=== PATIENT | female | born 1955 | race Caucasian/White ===

== ENCOUNTER 2023-05-18 05:28 | Inpatient (IN) | payer MEDICARE, OTHER ==
[~2023-05-18] VITALS: Ht 172.7 cm; Wt 101.0 kg
[2023-05-18] VITALS (45 sets, daily range): BP systolic 82–170; BP diastolic 34–95
[~2023-05-18 05:28] MED LIST: AMBIEN PO; CLARITIN-D 5 MG1 T12 PO; K-DUR 1010 MEQ PO; KLONOPIN0.5 MG PO; KLONOPIN1 M1 PO; KLOR-CON 1010 ME1 PO; LASIX40 MG PO; RANITIDINE HCL300 M2 PO; Synthroid,Lev100 MCG PO; TENORMIN25 M1 PO; TOPAMAX50 MG PO; TRAZADONE HYDR100 MG PO; VITAMIN B IJ
[2023-05-18] MEDS ORDERED: Midazolam Hydrochloride 5 MG/5 ML VIAL IV ONE (06:00)
[2023-05-18] MEDS ORDERED: Ceftriaxone Sodium 1 GM/10 ML SYR IV ONE (06:05)
[2023-05-18] MEDS ORDERED: methylPREDNISolone sod succ 125 MG VIAL IV ONE (06:05)
[2023-05-18] MEDS ORDERED: AZITHROMYCIN 250 ML IV ONE (06:05)
[2023-05-18 06:12] LABS: BASO % 0.2 % (0.0-1.0); EOS # 0.1 10*3/uL (0.0-0.4); EOS % 0.7 % (1.0-4.0); LYMPH # 2.5 10*3/uL (1.3-4.4); LYMPH % 24.3 % (27.0-41.0); MEAN CELL VOLUME 94.2 fl (81.0-99.0); MEAN CORPUSCULAR HGB 27.5 pg (27.0-31.0); MEAN CORPUSCULAR HGB CONC 29.2 g/dl (33.0-37.0); MEAN PLATELET VOLUME 9.5 fl (9.6-12.3); MONO # 0.4 10*3/uL (0.1-1.0); MONO % 3.7 % (3.0-9.0); NEUT # 7.2 10*3/uL (2.3-7.9); NEUT % 70.3 % (47.0-73.0); PLATELET COUNT AUTOMATED 397 10*3/uL (130-400); RED BLOOD COUNT 3.82 10*6/uL (4.10-5.10); RED CELL DISTRI WIDTH 16.6 % (0-14.5); WHITE BLOOD COUNT 10.3 10*3/uL (4.8-10.8)
[2023-05-18] MEDS ORDERED: ROCURONIUM BROMIDE 50 MG/5 ML SYRINGE IV ONE (06:20)
[2023-05-18] MEDS ORDERED: ETOMIDATE 20 MG/10 ML VIAL IV ONE (06:20)
[2023-05-18] MEDS ORDERED: PROPOFOL 50 ML IV SCH (06:20)
[2023-05-18] MEDS ORDERED: PROPOFOL 100 ML IV ONE (06:32)
[2023-05-18] MEDS ORDERED: FUROSEMIDE 40 MG/4 ML VIAL IV ONE (06:35)
[2023-05-18 06:39] LABS: ALKALINE PHOSPHATASE 66 U/L (46-116); BUN 9 mg/dl (9-23); CHLORIDE 110 mmol/L (98-107); LIPASE 132 U/L (12-53); POTASSIUM 4.1 mmol/L (3.4-5.1); SGPT/ALT 8 U/L (5-49); TOTAL PROTEIN 6.2 gm/dL (6.0-8.0)
[2023-05-18] MEDS ORDERED: NOREPINEPHRINE BITARTRATE/D5W 250 ML IV ONE (06:42)
[2023-05-18 07:08] LABS: ACT PARTIAL THROMBO TIME 33.8 SECONDS (20.0-32.1)
[2023-05-18] MEDS ORDERED: ACETAMINOPHEN 325 MG SUPP R ONE (08:10)
[2023-05-18] MEDS ORDERED: BISACODYL 5 MG TAB PO PRN (08:20)
[2023-05-18] MEDS ORDERED: Magnesium Hydroxide 30 ML UDC PO PRN (08:20)
[2023-05-18] MEDS ORDERED: HEPARIN SODIUM 250 ML IV SCH (08:20)
[2023-05-18] MEDS ORDERED: MORPHINE Sulfate 2 MG/ML SYR IV PRN (08:20)
[2023-05-18] MEDS ORDERED: ACETAMINOPHEN 650 MG SUPP R PRN (08:25)
[2023-05-18] MEDS ORDERED: Midazolam Hydrochloride 5 MG/5 ML VIAL IV PRN (08:30)
[2023-05-18] MEDS ORDERED: Ceftriaxone Sodium 1 GM in SYRINGE INFUSION 10 ML IV ONE (08:35)
[2023-05-18] MEDS ORDERED: DEXMEDETOMIDINE IN 0.9 % NACL 100 ML IV SCH (08:35)
[2023-05-18] MEDS ORDERED: ASPIRIN 300 MG SUPP R ONE (08:40)
[2023-05-18] MEDS ORDERED: Dexamethasone Sodium Phospha 4 MG/ML VIAL IV SCH (08:40)
[2023-05-18] MEDS ORDERED: NOREPINEPHRINE BITARTRATE/D5W 250 ML IV SCH (08:55)
[2023-05-18] MEDS ORDERED: REMDESIVIR 200 MG in SODIUM CHLORIDE 0.9% 210 ML IV ONE (09:00)
[2023-05-18] MEDS ORDERED: SODIUM CHLORIDE 0.9% 1,000 ML IV SCH (09:15)
[2023-05-18 09:51] LABS: ABG BASE EXCESS -4.6 mmol/L (-2.0-2.0); ARTERIAL BLOOD GAS PH 7.285 (7.35-7.45)
[2023-05-18] MEDS ORDERED: SODIUM CHLORIDE 0.9% 500 ML IV ONE (09:55)
[2023-05-18] MEDS ORDERED: Pantoprazole Sodium 40 MG VIAL IV SCH (10:00)
[2023-05-18] MEDS ORDERED: Chlorhexidine Gluconate 15 ML MOUTHWASH T SCH (10:00)
[2023-05-18] MEDS ORDERED: METOPROLOL SUCCINATE XR 25 MG TAB PO SCH (10:00)
[2023-05-18] MEDS ORDERED: VASOPRESSIN 100 ML IV SCH (10:40)
[2023-05-18 15:36] LABS: ABG BASE EXCESS -4.6 mmol/L (-2.0-2.0); ARTERIAL BLOOD GAS PH 7.412 (7.35-7.45)
[2023-05-18] MEDS ORDERED: TYLENOL325 M1 PO (16:00)
[2023-05-18] MEDS ORDERED: AMIODARONE HYD200 MG PO (16:01)
[2023-05-18] MEDS ORDERED: ELIQUIS5 M1 PO (16:02)
[2023-05-18] MEDS ORDERED: NEURONTIN300 MG PO (16:03)
[2023-05-18] MEDS ORDERED: VISTARIL25 M2 PO (16:05)
[2023-05-18] MEDS ORDERED: LOPRESSOR50 M1 PO (16:06)
[2023-05-18] MEDS ORDERED: ZYPREXA20 M1 PO (16:07)
[2023-05-18] MEDS ORDERED: ONDANSETRON4 MG SL (16:08)
[2023-05-18] MEDS ORDERED: PROTONIX40 MG PO (16:09)
[2023-05-18 19:59] LABS: BILIRUBIN Negative (Negative); BLOOD Trace-Lysed (Negative); CLARITY Cloudy (Clear); COLOR Yellow (Yellow); GLUCOSE Negative (Negative); KETONE Negative (Negative); LEUKO ESTERASE Trace (Negative); NITRITE Negative (Negative); SPECIFIC GRAVITY 1.015 (1.001-1.030); UROBILINOGEN 0.2 E.U./dl (0.0-1.0)
[2023-05-18 20:19] LABS: BACTERIA 1+; FINE GRANULAR CAST 0-2
[2023-05-18] MEDS ORDERED: GABAPENTIN 300 MG CAP PO SCH (22:00)
[2023-05-18] MEDS ORDERED: Metoprolol Tartrate 50 MG TAB PO SCH (22:00)
[2023-05-18] MEDS ORDERED: OLANZAPINE 10 MG TAB PO SCH (22:00)
[2023-05-19] VITALS (96 sets, daily range): BP systolic 84–133; BP diastolic 43–74
[2023-05-19] MEDS ORDERED: Levothyroxine Sodium 100 MCG TAB PO SCH (06:00)
[2023-05-19] MEDS ORDERED: AZITHROMYCIN 250 ML IV SCH (06:00)
[2023-05-19 06:20] LABS: ALKALINE PHOSPHATASE 46 U/L (46-116); BUN 18 mg/dl (9-23); CHLORIDE 109 mmol/L (98-107); CHOLESTEROL 113 mg/dL (<200); FREE T4 1.45 ng/dl (0.89-1.76); LDL CHOLESTEROL 55 mg/dL (9-159); LIPASE 37 U/L (12-53); POTASSIUM 4.2 mmol/L (3.4-5.1); TOTAL PROTEIN 5.5 gm/dL (6.0-8.0); TRIGLYCERIDES 160 mg/dl (<150)
[2023-05-19 06:22] LABS: SGPT/ALT < 7 U/L (5-49)
[2023-05-19 06:59] LABS: LYMPH # 1.4 10*3/uL (1.3-4.4); LYMPH % 23.6 % (27.0-41.0); MEAN CORPUSCULAR HGB 29.9 pg (27.0-31.0); MEAN CORPUSCULAR HGB CONC 32.9 g/dl (33.0-37.0); MEAN PLATELET VOLUME 10.7 fl (9.6-12.3); MONO # 0.3 10*3/uL (0.1-1.0); MONO % 5.2 % (3.0-9.0); NEUT # 4.2 10*3/uL (2.3-7.9); NEUT % 70.2 % (47.0-73.0); PLATELET COUNT AUTOMATED 329 10*3/uL (130-400); RED BLOOD COUNT 3.08 10*6/uL (4.10-5.10); RED CELL DISTRI WIDTH 16.3 % (0-14.5)
[2023-05-19 07:01] LABS: MEAN CELL VOLUME 90.9 fl (81.0-99.0)
[2023-05-19 07:18] LABS: VITAMIN D, 25-HYDROXY 29.8 ng/mL (30-100)
[2023-05-19] MEDS ORDERED: MAGNESIUM SULFATE 50 ML IV ONE (07:55)
[2023-05-19] MEDS ORDERED: Ceftriaxone Sodium 2 GM in SYRINGE INFUSION 20 ML IV SCH (08:00)
[2023-05-19 08:37] LABS: ABG BASE EXCESS -3.5 mmol/L (-2.0-2.0); ARTERIAL BLOOD GAS PH 7.473 (7.35-7.45)
[2023-05-19] MEDS ORDERED: REMDESIVIR 100 MG in SODIUM CHLORIDE 0.9% 230 ML IV SCH (09:00)
[2023-05-19] MEDS ORDERED: FUROSEMIDE 40 MG/4 ML VIAL IV SCH ×2 (10:00→18:00)
[2023-05-19] MEDS ORDERED: Vitamin D 400 IU TAB (10 MCG) PO SCH (10:00)
[2023-05-19] MEDS ORDERED: ATORVASTATIN CALCIUM 40 MG TABLET PO SCH (10:00)
[2023-05-19] MEDS ORDERED: FOLIC ACID 0.4 MG TAB PO SCH (10:00)
[2023-05-19] MEDS ORDERED: Amiodarone Hydrochloride 200 MG TAB PO SCH (10:00)
[2023-05-19] MEDS ORDERED: NYSTATIN 15 GM BOT T SCH (10:40)
[2023-05-19 12:28] LABS: ABG BASE EXCESS -2.8 mmol/L (-2.0-2.0); ARTERIAL BLOOD GAS PH 7.456 (7.35-7.45)
[2023-05-19] MEDS ORDERED: ACETAMINOPHEN 325 MG/10.15 ML UDC OGT PRN (19:45)
[2023-05-20] VITALS (51 sets, daily range): BP systolic 95–123; BP diastolic 40–78
[2023-05-20 06:03] LABS: HEMATOCRIT 26.3 % (37.0-47.0); LYMPH % 13.1 % (27.0-41.0); MEAN CELL VOLUME 88.6 fl (81.0-99.0); MEAN CORPUSCULAR HGB 28.3 pg (27.0-31.0); MEAN CORPUSCULAR HGB CONC 31.9 g/dl (33.0-37.0); MONO # 0.6 10*3/uL (0.1-1.0); MONO % 7.9 % (3.0-9.0); NEUT # 5.7 10*3/uL (2.3-7.9); NEUT % 77.8 % (47.0-73.0); PLATELET COUNT AUTOMATED 282 10*3/uL (130-400); RED BLOOD COUNT 2.97 10*6/uL (4.10-5.10); RED CELL DISTRI WIDTH 15.9 % (0-14.5); WHITE BLOOD COUNT 7.3 10*3/uL (4.8-10.8)
[2023-05-20 06:13] LABS: ALKALINE PHOSPHATASE 44 U/L (46-116); BUN 26 mg/dl (9-23); CHLORIDE 106 mmol/L (98-107); POTASSIUM 3.8 mmol/L (3.4-5.1); SGPT/ALT 9 U/L (5-49); TOTAL PROTEIN 5.5 gm/dL (6.0-8.0)
[2023-05-20] MEDS ORDERED: POTASSIUM CHLORIDE 100 ML IV ONE (08:00)
[2023-05-20 10:23] LABS: ARTERIAL BLOOD GAS PH 7.496 (7.35-7.45)
[2023-05-20 13:25] LABS: ABG BASE EXCESS 1.4 mmol/L (-2.0-2.0); ARTERIAL BLOOD GAS PH 7.5 (7.35-7.45)
[2023-05-21] VITALS (13 sets, daily range): BP systolic 95–146; BP diastolic 41–71
[2023-05-21 06:15] LABS: BUN 24 mg/dl (9-23); CHLORIDE 105 mmol/L (98-107); POTASSIUM 3.4 mmol/L (3.4-5.1)
[2023-05-21 06:26] LABS: HEMATOCRIT 23.4 % (37.0-47.0); LYMPH # 1.1 10*3/uL (1.3-4.4); LYMPH % 15.5 % (27.0-41.0); MEAN CORPUSCULAR HGB 27.4 pg (27.0-31.0); MEAN CORPUSCULAR HGB CONC 30.8 g/dl (33.0-37.0); MEAN PLATELET VOLUME 11.6 fl (9.6-12.3); MONO # 0.4 10*3/uL (0.1-1.0); MONO % 5.2 % (3.0-9.0); NEUT # 5.7 10*3/uL (2.3-7.9); NEUT % 77.5 % (47.0-73.0); PLATELET COUNT AUTOMATED 229 10*3/uL (130-400); RED BLOOD COUNT 2.63 10*6/uL (4.10-5.10); RED CELL DISTRI WIDTH 15.9 % (0-14.5); WHITE BLOOD COUNT 7.3 10*3/uL (4.8-10.8)
[2023-05-21] MEDS ORDERED: POTASSIUM CHLORIDE 20 MEQ TAB PO ONE (07:15)
[2023-05-21] MEDS ORDERED: MAGNESIUM SULFATE 100 ML IV ONE (07:15)
[2023-05-21 08:03] LABS: ARTERIAL BLOOD GAS PH 7.477 (7.35-7.45)
[2023-05-21] MEDS ORDERED: SODIUM CHLORIDE 0.9% 500 ML IV SCH (11:25)
[2023-05-21] MEDS ORDERED: CARVEDILOL 3.125 MG TAB PO SCH (13:45)
[2023-05-21] MEDS ORDERED: Losartan Potassium 25 MG TAB PO SCH (13:50)
[2023-05-22] VITALS: BP 119/75
[2023-05-22 04:00] VITALS: BP 137/82
[2023-05-22 06:15] LABS: BUN 22 mg/dl (9-23); CHLORIDE 104 mmol/L (98-107); POTASSIUM 3.2 mmol/L (3.4-5.1)
[2023-05-22 06:22] LABS: MEAN CELL VOLUME 88.3 fl (81.0-99.0); MEAN CORPUSCULAR HGB 28.8 pg (27.0-31.0); MEAN CORPUSCULAR HGB CONC 32.6 g/dl (33.0-37.0); MEAN PLATELET VOLUME 11.2 fl (9.6-12.3); NUCLEATED RED BLOOD CELL 0.1 10*3/uL (0.0-0.0); NUCLEATED RED BLOOD CELL 0.4 % (0.0-0.0); RED BLOOD COUNT 3.85 10*6/uL (4.10-5.10); RED CELL DISTRI WIDTH 15.5 % (0-14.5); WHITE BLOOD COUNT 17.9 10*3/uL (4.8-10.8)
[2023-05-22 06:26] LABS: MANUAL DIFF REFLEX YES; PLATELET COUNT AUTOMATED 359 10*3/uL (130-400)
[2023-05-22 07:58] LABS: TOTAL CELLS COUNTED 100 #CELLS
[2023-05-22 07:59] LABS: POLYCHROMASIA SLIGHT
[2023-05-22 08:00] VITALS: BP 147/82
[2023-05-22 08:00] LABS: OVALOCYTES FEW; PLATELET SUFFICIENCY NORMAL (NORMAL)
[2023-05-22] MEDS ORDERED: POTASSIUM CHLORIDE 20 MEQ TAB PO ONE (08:40)
[2023-05-22] MEDS ORDERED: IOHEXOL 9 MG/ML (IODINE) ORAL SOLUTION PO ONE (10:25)
[2023-05-22 12:00] VITALS: BP 148/92
[2023-05-22] MEDS ORDERED: ALPRAZolam 0.25 MG TAB PO PRN (13:35)
[2023-05-22] MEDS ORDERED: SPIRONOLACTONE 25 MG TAB PO SCH (15:50)
[2023-05-22 16:00] VITALS: BP 152/91
[2023-05-22 17:30] LABS: HEMATOCRIT 37.3 % (37.0-47.0); MEAN CELL VOLUME 88.4 fl (81.0-99.0); MEAN CORPUSCULAR HGB 28.2 pg (27.0-31.0); MEAN CORPUSCULAR HGB CONC 31.9 g/dl (33.0-37.0); MEAN PLATELET VOLUME 10.9 fl (9.6-12.3); NUCLEATED RED BLOOD CELL 0.1 10*3/uL (0.0-0.0); NUCLEATED RED BLOOD CELL 0.6 % (0.0-0.0); PLATELET COUNT AUTOMATED 346 10*3/uL (130-400); RED BLOOD COUNT 4.22 10*6/uL (4.10-5.10); RED CELL DISTRI WIDTH 15.8 % (0-14.5); WHITE BLOOD COUNT 20.7 10*3/uL (4.8-10.8)
[2023-05-22 17:32] LABS: MANUAL DIFF REFLEX YES
[2023-05-22 17:57] LABS: PLATELET SUFFICIENCY NORMAL (NORMAL); TOTAL CELLS COUNTED 100 #CELLS
[2023-05-22 20:00] VITALS: BP 114/95
[2023-05-22] MEDS ORDERED: CARVEDILOL 12.5 MG TAB PO SCH (22:00)
[2023-05-23] VITALS: BP 113/68
[2023-05-23 04:00] VITALS: BP 112/60
[2023-05-23 06:15] LABS: HEMATOCRIT 35.1 % (37.0-47.0); MEAN CELL VOLUME 88.4 fl (81.0-99.0); MEAN CORPUSCULAR HGB CONC 32.8 g/dl (33.0-37.0); MEAN PLATELET VOLUME 11.4 fl (9.6-12.3); NUCLEATED RED BLOOD CELL 0.1 10*3/uL (0.0-0.0); NUCLEATED RED BLOOD CELL 0.9 % (0.0-0.0); PLATELET COUNT AUTOMATED 324 10*3/uL (130-400); RED BLOOD COUNT 3.97 10*6/uL (4.10-5.10); RED CELL DISTRI WIDTH 16.4 % (0-14.5); WHITE BLOOD COUNT 14.5 10*3/uL (4.8-10.8)
[2023-05-23 06:17] LABS: MANUAL DIFF REFLEX YES
[2023-05-23 07:16] LABS: ATYPICAL LYMPHS 1 % (0-0); TOTAL CELLS COUNTED 100 #CELLS
[2023-05-23 07:17] LABS: OVALOCYTES FEW; POLYCHROMASIA SLIGHT
[2023-05-23 07:18] LABS: PLATELET SUFFICIENCY NORMAL (NORMAL)
[2023-05-23 07:25] LABS: BUN 20 mg/dl (9-23); CHLORIDE 101 mmol/L (98-107); POTASSIUM 3.7 mmol/L (3.4-5.1)
[2023-05-23 08:00] VITALS: BP 148/89
[2023-05-23] MEDS ORDERED: Losartan Potassium 25 MG TAB PO SCH (10:00)
[2023-05-23] MEDS ORDERED: Enoxaparin Sodium 40 MG/0.4 ML SYR SC SCH (10:00)
[2023-05-23 12:00] VITALS: BP 99/49
[2023-05-23 16:00] VITALS: BP 95/44
[2023-05-23 20:00] VITALS: BP 150/71
[2023-05-23] MEDS ORDERED: TEMAZEPAM 15 MG CAP PO PRN (22:00)
[2023-05-24] VITALS: BP 134/54
[2023-05-24 05:48] LABS: BUN 13 mg/dl (9-23); CHLORIDE 104 mmol/L (98-107); POTASSIUM 3.2 mmol/L (3.4-5.1)
[2023-05-24 07:25] LABS: HEMATOCRIT 33.4 % (37.0-47.0); MEAN CELL VOLUME 90.3 fl (81.0-99.0); MEAN CORPUSCULAR HGB 28.4 pg (27.0-31.0); MEAN CORPUSCULAR HGB CONC 31.4 g/dl (33.0-37.0); NUCLEATED RED BLOOD CELL 0.2 % (0.0-0.0); PLATELET COUNT AUTOMATED 250 10*3/uL (130-400); RED CELL DISTRI WIDTH 16.9 % (0-14.5); WHITE BLOOD COUNT 15.9 10*3/uL (4.8-10.8)
[2023-05-24] MEDS ORDERED: POTASSIUM CHLORIDE 20 MEQ TAB PO ONE (07:25)
[2023-05-24] MEDS ORDERED: MAGNESIUM SULFATE 50 ML IV ONE (07:25)
[2023-05-24 07:28] LABS: MANUAL DIFF REFLEX YES
[2023-05-24] MEDS ORDERED: CALCIUM GLUC IN NACL, ISO-OSM 100 ML IV ONE (07:35)
[2023-05-24 08:00] VITALS: BP 108/64
[2023-05-24 08:07] LABS: PLATELET SUFFICIENCY NORMAL (NORMAL); POLYCHROMASIA SLIGHT; TOTAL CELLS COUNTED 100 #CELLS; TOXIC GRANULATION SLIGHT; VACUOLATION OF NEUTROPHILS SLIGHT
[2023-05-24 12:00] VITALS: BP 110/66
[2023-05-24 16:00] VITALS: BP 149/60
[2023-05-24 16:14] LABS: BILIRUBIN Negative (Negative); BLOOD Negative (Negative); CLARITY Clear (Clear); COLOR Yellow (Yellow); GLUCOSE Negative (Negative); KETONE Negative (Negative); LEUKO ESTERASE Negative (Negative); NITRITE Negative (Negative); PH 6.5 (4.5-8.0); UROBILINOGEN 0.2 E.U./dl (0.0-1.0)
[2023-05-24 16:23] LABS: RBC 0-2 rbc/hpf (0-2)
[2023-05-24 20:00] VITALS: BP 103/44
[2023-05-24] MEDS ORDERED: ACETAMINOPHEN 325 MG TAB PO PRN (20:30)
[2023-05-25] VITALS (7 sets, daily range): BP systolic 94–165; BP diastolic 40–74
[2023-05-25] MEDS ORDERED: MORPHINE Sulfate 2 MG/ML SYR IV ONE (04:35)
[2023-05-25 06:25] LABS: HEMATOCRIT 33.9 % (37.0-47.0); MEAN CELL VOLUME 91.4 fl (81.0-99.0); MEAN CORPUSCULAR HGB 28.3 pg (27.0-31.0); MEAN PLATELET VOLUME 11.1 fl (9.6-12.3); PLATELET COUNT AUTOMATED 244 10*3/uL (130-400); RED BLOOD COUNT 3.71 10*6/uL (4.10-5.10); RED CELL DISTRI WIDTH 17.1 % (0-14.5); WHITE BLOOD COUNT 21.6 10*3/uL (4.8-10.8)
[2023-05-25 06:45] LABS: MANUAL DIFF REFLEX YES
[2023-05-25 06:57] LABS: BUN 20 mg/dl (9-23); CHLORIDE 102 mmol/L (98-107); POTASSIUM 3.2 mmol/L (3.4-5.1)
[2023-05-25] MEDS ORDERED: POTASSIUM CHLORIDE 20 MEQ TAB PO ONE (07:10)
[2023-05-25 07:50] LABS: TOTAL CELLS COUNTED 100 #CELLS
[2023-05-25 07:52] LABS: MICROCYTOSIS SLIGHT; PLATELET SUFFICIENCY NORMAL (NORMAL)
[2023-05-25] MEDS ORDERED: LASIX20 MG PO (09:12)
[2023-05-25] MEDS ORDERED: LOSARTAN POTASS25 M1 PO (09:12)
[2023-05-25] MEDS ORDERED: NYAMYC15 GM T (09:12)
[2023-05-25] MEDS ORDERED: CARVEDILOL12.5 MG PO (09:12)
[2023-05-25] MEDS ORDERED: PHARMASSURE FO0.4 MG PO (09:12)
[2023-05-25] MEDS ORDERED: ALDACTONE25 MG PO (09:12)
[2023-05-25] MEDS ORDERED: K-TAB20 MEQ PO (09:12)
[2023-05-25] MEDS ORDERED: VITAMIN D310 MC1 PO (09:12)
[2023-05-25] MEDS ORDERED: ATORVASTATIN CA40 M1 PO (09:12)
[2023-05-25] MEDS ORDERED: Ketorolac Tromethamine 30 MG/ML VIAL IV ONE (12:50)
[2023-05-25] MEDS ORDERED: METAMUCIL0.4 G1 PO (15:40)
[2023-05-25] MEDS ORDERED: LORazepam 0.5 MG TAB PO ONE (19:25)
[2023-05-26] VITALS: BP 95/41
[2023-05-26 00:09] VITALS: BP 95/21
[2023-05-26 00:55] VITALS: BP 108/55
[2023-05-26 05:56] LABS: BUN 21 mg/dl (9-23); CHLORIDE 104 mmol/L (98-107); POTASSIUM 4.1 mmol/L (3.4-5.1)
[2023-05-26 06:12] LABS: HEMATOCRIT 34.5 % (37.0-47.0); MEAN CELL VOLUME 92.7 fl (81.0-99.0); MEAN CORPUSCULAR HGB 28.2 pg (27.0-31.0); MEAN CORPUSCULAR HGB CONC 30.4 g/dl (33.0-37.0); MEAN PLATELET VOLUME 11.6 fl (9.6-12.3); NUCLEATED RED BLOOD CELL 0.5 % (0.0-0.0); PLATELET COUNT AUTOMATED 228 10*3/uL (130-400); RED BLOOD COUNT 3.72 10*6/uL (4.10-5.10); RED CELL DISTRI WIDTH 17.3 % (0-14.5); WHITE BLOOD COUNT 8.3 10*3/uL (4.8-10.8)
[2023-05-26 06:13] LABS: MANUAL DIFF REFLEX YES
[2023-05-26 07:18] LABS: BURR CELLS FEW; OVALOCYTES FEW; PLATELET SUFFICIENCY NORMAL (NORMAL); POLYCHROMASIA SLIGHT; TOTAL CELLS COUNTED 100 #CELLS; TOXIC GRANULATION SLIGHT; VACUOLATION OF NEUTROPHILS SLIGHT
[2023-05-26 08:00] VITALS: BP 140/64
[2023-05-26] MEDS ORDERED: FUROSEMIDE 20 MG TAB PO SCH (10:00)
[2023-05-26 12:00] VITALS: BP 1210/56
== END 2023-05-26 13:40 | DRG 871 ==
LOC: ED 05:28 → ICCU 07:52 → EDHOLD 07:52 → ICCU 12:51 → 4E 05-23 15:09
PROVIDERS: Family Medicine; Internal Medicine; Internal Medicine Critical Care Medicine; Student in an Organized Health Care Education/Training Program; Surgery; ADMIT Internal Medicine; ATTEND Internal Medicine
PROC: 5A1945Z Respiratory Ventilation, 24-96 Consecutive Hours (ICD-10-PCS; principal; 2023-05-18)
PROC: 0BH18EZ Insertion of Endotracheal Airway into Trachea, Via Natural or Artificial Opening Endoscopic (ICD-10-PCS; 2023-05-18)
PROC: 02HV33Z Insertion of Infusion Device into Superior Vena Cava, Percutaneous Approach (ICD-10-PCS; 2023-05-18)
PROC: B548ZZA Ultrasonography of Superior Vena Cava, Guidance (ICD-10-PCS; 2023-05-18)
PROC: XW033E5 Introduction of Remdesivir Anti-infective into Peripheral Vein, Percutaneous Approach, New Technology Group 5 (ICD-10-PCS; 2023-05-19)
PROC: 5A09357 Assistance with Respiratory Ventilation, Less than 24 Consecutive Hours, Continuous Positive Airway Pressure (ICD-10-PCS; 2023-05-20)
PROC: 30233N1 Transfusion of Nonautologous Red Blood Cells into Peripheral Vein, Percutaneous Approach (ICD-10-PCS; 2023-05-21)
DX: A41.9 Sepsis, unspecified organism (principal); E43 Unspecified severe protein-calorie malnutrition; I21.4 Non-ST elevation (NSTEMI) myocardial infarction; U07.1 COVID-19; J69.0 Pneumonitis due to inhalation of food and vomit; R65.21 Severe sepsis with septic shock; I50.23 Acute on chronic systolic (congestive) heart failure; J96.21 Acute and chronic respiratory failure with hypoxia; J96.22 Acute and chronic respiratory failure with hypercapnia; I42.9 Cardiomyopathy, unspecified; E87.20 Acidosis, unspecified; R65.20 Severe sepsis without septic shock; I44.4 Left anterior fascicular block; D64.9 Anemia, unspecified; F17.209 Nicotine dependence, unspecified, with unspecified nicotine-induced disorders; E87.8 Other disorders of electrolyte and fluid balance, not elsewhere classified; Z71.6 Tobacco abuse counseling; K21.9 Gastro-esophageal reflux disease without esophagitis; I11.0 Hypertensive heart disease with heart failure; E53.8 Deficiency of other specified B group vitamins; F41.1 Generalized anxiety disorder; E03.9 Hypothyroidism, unspecified; F32.9 Major depressive disorder, single episode, unspecified; K58.9 Irritable bowel syndrome, unspecified; E78.5 Hyperlipidemia, unspecified; E55.9 Vitamin D deficiency, unspecified; E11.65 Type 2 diabetes mellitus with hyperglycemia; E11.42 Type 2 diabetes mellitus with diabetic polyneuropathy; I27.20 Pulmonary hypertension, unspecified; I08.1 Rheumatic disorders of both mitral and tricuspid valves; Z93.3 Colostomy status; I48.91 Unspecified atrial fibrillation; Z90.710 Acquired absence of both cervix and uterus; Z82.49 Family history of ischemic heart disease and other diseases of the circulatory system; Z83.3 Family history of diabetes mellitus; Z88.5 Allergy status to narcotic agent; Z88.8 Allergy status to other drugs, medicaments and biological substances; Z79.899 Other long term (current) drug therapy; Z79.01 Long term (current) use of anticoagulants; Z68.33 Body mass index [BMI] 33.0-33.9, adult

== ENCOUNTER → 2023-07-16 | Outpatient (CLI) | payer MEDICARE, OTHER ==
[~2023-07-16] MED LIST changes: +ALDACTONE25 MG PO; +AMIODARONE HYD200 MG PO; +ATORVASTATIN CA40 M1 PO; +CARVEDILOL12.5 MG PO; +ELIQUIS5 M1 PO; +K-TAB20 MEQ PO; +LASIX20 MG PO; +LOPRESSOR50 M1 PO; +LOSARTAN POTASS25 M1 PO; +METAMUCIL0.4 G1 PO; +NEURONTIN300 MG PO; +NYAMYC15 GM T; +ONDANSETRON4 MG SL; +PHARMASSURE FO0.4 MG PO; +PROTONIX40 MG PO; +TYLENOL325 M1 PO; +VISTARIL25 M2 PO; +VITAMIN D310 MC1 PO; +ZYPREXA20 M1 PO
== END | disposition home or self-care (01) ==
LOC: ORTHO 01:34
PROVIDERS: ATTEND Orthopaedic Surgery
DX: M25.562 Pain in left knee (principal)

== ENCOUNTER 2024-01-31 20:12 | Emergency (ER) | payer MEDICARE, OTHER ==
[~2024-01-31] VITALS: Ht 165.1 cm; Wt 90.7 kg
[2024-01-31] MEDS ORDERED: SODIUM CHLORIDE 0.9% 1,000 ML IV ONE ×2 (20:25→22:10)
[2024-01-31] MEDS ORDERED: Ondansetron Hydrochloride 4 MG/2 ML VIAL IV ONE (20:25)
[2024-01-31 21:01] LABS: BASO # 0.1 10*3/uL (0.0-0.1); BASO % 0.6 % (0.0-1.0); EOS # 0.2 10*3/uL (0.0-0.4); EOS % 1.2 % (1.0-4.0); HEMATOCRIT 42.4 % (37.0-47.0); MEAN CELL VOLUME 84.8 fl (81.0-99.0); MEAN CORPUSCULAR HGB 25.2 pg (27.0-31.0); MEAN CORPUSCULAR HGB CONC 29.7 g/dl (33.0-37.0); MEAN PLATELET VOLUME 10.5 fl (9.6-12.3); MONO # 1.4 10*3/uL (0.1-1.0); MONO % 7.6 % (3.0-9.0); NEUT % 78.5 % (47.0-73.0); PLATELET COUNT AUTOMATED 437 10*3/uL (130-400); RED CELL DISTRI WIDTH 19.9 % (0-14.5); WHITE BLOOD COUNT 17.8 10*3/uL (4.8-10.8)
[2024-01-31 21:23] LABS: POTASSIUM 4.6 mmol/L (3.4-5.1); TOTAL PROTEIN 7.5 gm/dL (6.0-8.0)
[2024-01-31] MEDS ORDERED: MAGNESIUM SULFATE 50 ML IV ONE (21:40)
[2024-01-31] MEDS ORDERED: LORazepam 2 MG/ML VIAL IV ONE (23:20)
[2024-01-31 23:33] LABS: BILIRUBIN Negative (Negative); BLOOD Negative (Negative); CLARITY Clear (Clear); COLOR Yellow (Yellow); GLUCOSE Negative (Negative); KETONE Trace (Negative); LEUKO ESTERASE Trace (Negative); NITRITE Negative (Negative); SPECIFIC GRAVITY 1.025 (1.001-1.030); UROBILINOGEN 0.2 E.U./dl (0.0-1.0)
[2024-01-31 23:40] LABS: URINE AMPHETAMINES Negative (1000ng/ml); URINE BARBITURATES Negative (200ng/ml); URINE BENZODIAZEPINES Positive (200ng/ml); URINE CANNABINOIDS (THC) Negative (50ng/ml); URINE COCAINE Negative (300ng/ml); URINE METHADONE Negative (300ng/ml); URINE OPIATES Positive (300ng/ml); URINE PHENCYCLIDINE Negative (25ng/ml)
[2024-02-01 00:21] LABS: BACTERIA 1+; EPITHELIAL CELLS 16-20
[2024-02-01 02:17] LABS: VENOUS BLOOD GAS O2 SAT 94.3 % (60.0-85.0)
[2024-02-01 02:41] LABS: BUN 22 mg/dl (9-23); CHLORIDE 101 mmol/L (98-107); POTASSIUM 4.1 mmol/L (3.4-5.1)
[2024-02-01] MEDS ORDERED: ACETAMINOPHEN 500 MG TAB PO ONE (09:35)
[2024-02-01] MEDS ORDERED: LORazepam 1 MG TAB PO ONE (11:15)
[2024-02-01] MEDS ORDERED: ASPIRIN ADULT L81 M2 PO (17:55)
[2024-02-01] MEDS ORDERED: ELIQUIS5 M1 PO (17:58)
[2024-02-01] MEDS ORDERED: BUSPIRONE HCL7.5 MG PO (18:00)
[2024-02-01] MEDS ORDERED: CIPRO500 MG PO (18:03)
[2024-02-01] MEDS ORDERED: LEXAPRO10 MG PO (18:04)
[2024-02-01] MEDS ORDERED: FERROUS GLUCON324 MG PO (18:21)
[2024-02-01] MEDS ORDERED: HYDROCODONE-AC1 EAC1 PO (18:25)
[2024-02-01] MEDS ORDERED: FLUZONE HI180 MCG/08 IM (18:27)
[2024-02-01] MEDS ORDERED: TUBERSOL1 M1 IC (18:35)
[2024-02-01] MEDS ORDERED: MIRALAX17 GM PO (18:35)
[2024-02-02] MEDS ORDERED: LASIX20 MG PO (00:39)
== END 2024-02-01 15:05 ==
LOC: ED 20:12
PROVIDERS: Internal Medicine; Nurse Practitioner Family
DX: F43.23 Adjustment disorder with mixed anxiety and depressed mood (principal); T55.0X1A Toxic effect of soaps, accidental (unintentional), initial encounter; K52.1 Toxic gastroenteritis and colitis; R11.2 Nausea with vomiting, unspecified; E78.00 Pure hypercholesterolemia, unspecified; E87.6 Hypokalemia; K21.9 Gastro-esophageal reflux disease without esophagitis; E78.5 Hyperlipidemia, unspecified; E03.9 Hypothyroidism, unspecified; M19.90 Unspecified osteoarthritis, unspecified site; E11.65 Type 2 diabetes mellitus with hyperglycemia; F32.A Depression, unspecified; E11.40 Type 2 diabetes mellitus with diabetic neuropathy, unspecified; D63.1 Anemia in chronic kidney disease; E11.22 Type 2 diabetes mellitus with diabetic chronic kidney disease; N18.9 Chronic kidney disease, unspecified; I13.0 Hypertensive heart and chronic kidney disease with heart failure and stage 1 through stage 4 chronic kidney disease, or unspecified chronic kidney disease; I48.91 Unspecified atrial fibrillation; F17.200 Nicotine dependence, unspecified, uncomplicated; Z88.5 Allergy status to narcotic agent; Z88.8 Allergy status to other drugs, medicaments and biological substances; Z90.710 Acquired absence of both cervix and uterus; Z90.49 Acquired absence of other specified parts of digestive tract; Z79.899 Other long term (current) drug therapy; Y92.129 Unspecified place in nursing home as the place of occurrence of the external cause

== ENCOUNTER 2024-02-01 16:28 | Inpatient (IN) | payer MEDICARE, OTHER ==
[2024-02-01] MEDS ORDERED: ASPIRIN ADULT L81 M2 PO (17:55)
[2024-02-01] MEDS ORDERED: ELIQUIS5 M1 PO (17:58)
[2024-02-01] MEDS ORDERED: BUSPIRONE HCL7.5 MG PO (18:00)
[2024-02-01] MEDS ORDERED: CIPRO500 MG PO (18:03)
[2024-02-01] MEDS ORDERED: LEXAPRO10 MG PO (18:04)
[2024-02-01] MEDS ORDERED: FERROUS GLUCON324 MG PO (18:21)
[2024-02-01] MEDS ORDERED: HYDROCODONE-AC1 EAC1 PO (18:25)
[2024-02-01] MEDS ORDERED: FLUZONE HI180 MCG/08 IM (18:27)
[2024-02-01] MEDS ORDERED: MIRALAX17 GM PO (18:35)
[2024-02-01] MEDS ORDERED: TUBERSOL1 M1 IC (18:35)
[2024-02-01 20:00] VITALS: BP 121/53
[2024-02-01] MEDS ORDERED: ACETAMINOPHEN 325 MG TAB PO PRN (20:10)
[2024-02-01] MEDS ORDERED: Magnesium Hydroxide 30 ML UDC PO PRN (20:10)
[2024-02-01] MEDS ORDERED: Menthol/Zinc Oxide 4 GM THIN T PRN (20:15)
[2024-02-01] MEDS ORDERED: Ziprasidone Mesylate 20 MG VIAL IM PRN (20:20)
[2024-02-01] MEDS ORDERED: LORazepam 1 MG TAB PO PRN (20:20)
[2024-02-01] MEDS ORDERED: Water, Sterile 10 ML VIAL IM PRN (20:20)
[2024-02-01] MEDS ORDERED: LORazepam 2 MG/ML VIAL IM PRN (20:20)
[2024-02-01] MEDS ORDERED: APIXABAN 5 MG TAB PO SCH (21:00)
[2024-02-01] MEDS ORDERED: Ciprofloxacin Hydrochloride 500 MG TAB PO SCH (21:00)
[2024-02-01] MEDS ORDERED: FERROUS GLUCONATE 324 MG TAB PO SCH (21:00)
[2024-02-02] MEDS ORDERED: LASIX20 MG PO (00:39)
[2024-02-02 06:25] LABS: BASO # 0.1 10*3/uL (0.0-0.1); EOS # 0.1 10*3/uL (0.0-0.4); EOS % 1.6 % (1.0-4.0); HEMATOCRIT 34.6 % (37.0-47.0); LYMPH # 1.7 10*3/uL (1.3-4.4); LYMPH % 25.5 % (27.0-41.0); MEAN CELL VOLUME 82.4 fl (81.0-99.0); MEAN CORPUSCULAR HGB 25.5 pg (27.0-31.0); MEAN CORPUSCULAR HGB CONC 30.9 g/dl (33.0-37.0); MEAN PLATELET VOLUME 11.1 fl (9.6-12.3); MONO # 0.7 10*3/uL (0.1-1.0); MONO % 9.6 % (3.0-9.0); NEUT # 4.2 10*3/uL (2.3-7.9); NEUT % 61.9 % (47.0-73.0); PLATELET COUNT AUTOMATED 327 10*3/uL (130-400); RED CELL DISTRI WIDTH 19.4 % (0-14.5); WHITE BLOOD COUNT 6.8 10*3/uL (4.8-10.8)
[2024-02-02 06:36] LABS: ALKALINE PHOSPHATASE 89 U/L (46-116); BUN 15 mg/dl (9-23); CHLORIDE 106 mmol/L (98-107); CHOLESTEROL 119 mg/dL (<200); LDL CHOLESTEROL 64 mg/dL (9-159); POTASSIUM 3.9 mmol/L (3.4-5.1); SGPT/ALT 15 U/L (5-49); TRIGLYCERIDES 73 mg/dl (<150)
[2024-02-02 08:00] VITALS: BP 131/59
[2024-02-02 08:21] LABS: VITAMIN D, 25-HYDROXY 39.2 ng/mL (30-100)
[2024-02-02] MEDS ORDERED: FUROSEMIDE 20 MG TAB PO SCH (09:00)
[2024-02-02] MEDS ORDERED: ASPIRIN ENTERIC COATED 81 MG TAB PO SCH (09:00)
[2024-02-02] MEDS ORDERED: POTASSIUM CHLORIDE 20 MEQ TAB PO SCH (09:00)
[2024-02-02] MEDS ORDERED: Levothyroxine Sodium 100 MCG TAB PO SCH (10:00)
[2024-02-02] MEDS ORDERED: ATORVASTATIN CALCIUM 40 MG TABLET PO SCH (10:00)
[2024-02-02] MEDS ORDERED: Pantoprazole Sodium 40 MG TAB PO SCH (10:00)
[2024-02-02 20:00] VITALS: BP 116/50
[2024-02-02] MEDS ORDERED: Duloxetine Hydrochloride 30 MG CAP PO SCH (21:00)
[2024-02-02] MEDS ORDERED: Amoxicillin/Clavulanate Pota 875 MG TAB PO SCH (21:00)
[2024-02-02] MEDS ORDERED: Acetaminophen/Hydrocodone 5 MG/325 MG TABLET PO ONE (23:05)
[2024-02-03 08:00] VITALS: BP 115/47
[2024-02-03] MEDS ORDERED: CYANOCOBALAMIN 1,000 MCG/ML VIAL IM SCH ×2 (10:00→17:05)
[2024-02-03] MEDS ORDERED: Capsaicin 0.075% Cream 57 GM TUBE T SCH (13:00)
[2024-02-03] MEDS ORDERED: GABAPENTIN 100 MG CAP PO SCH (14:00)
[2024-02-03 20:00] VITALS: BP 124/50
[2024-02-03] MEDS ORDERED: Duloxetine Hydrochloride 30 MG CAP PO SCH (21:00)
[2024-02-04 02:03] LABS: BILIRUBIN Negative (Negative); BLOOD Negative (Negative); CLARITY Cloudy (Clear); COLOR Yellow (Yellow); GLUCOSE Negative (Negative); KETONE Negative (Negative); LEUKO ESTERASE 1+ (Negative); NITRITE Negative (Negative); UROBILINOGEN 0.2 E.U./dl (0.0-1.0)
[2024-02-04 02:18] LABS: EPITHELIAL CELLS 31-40; YEAST 2+
[2024-02-04 08:00] VITALS: BP 123/46
[2024-02-04 20:00] VITALS: BP 119/56
[2024-02-04] MEDS ORDERED: LORazepam 0.5 MG TAB PO SCH (21:00)
[2024-02-05 08:08] VITALS: BP 120/56
[2024-02-05] MEDS ORDERED: clonAZEPAM 0.5 MG TAB PO SCH (09:20)
[2024-02-05 20:00] VITALS: BP 146/67
[2024-02-05] MEDS ORDERED: clonAZEPAM 1 MG TAB PO SCH (21:00)
[2024-02-06 08:00] VITALS: BP 120/50
[2024-02-06] MEDS ORDERED: Levothyroxine Sodium 100 MCG TAB PO SCH (08:00)
[2024-02-06] MEDS ORDERED: NITROFURANTOIN MACROCRYSTAL 100 MG PO SCH (13:15)
[2024-02-06] MEDS ORDERED: Duloxetine Hydrochloride 60 MG CAP PO SCH (21:00)
[2024-02-07] MEDS ORDERED: Acetaminophen/Hydrocodone 5 MG/325 MG TABLET PO PRN (01:20)
[2024-02-07 08:47] VITALS: BP 135/53
[2024-02-07] MEDS ORDERED: Duloxetine Hydrochloride 30 MG CAP PO SCH (09:00)
[2024-02-07 20:00] VITALS: BP 121/47
[2024-02-07] MEDS ORDERED: clonAZEPAM 2 MG TAB PO SCH (21:00)
[2024-02-08 07:49] VITALS: BP 131/54
[2024-02-08] MEDS ORDERED: CLONAZEPAM0.5 M2 PO (09:46)
[2024-02-08] MEDS ORDERED: DULOXETINE HCL60 MG PO (09:46)
[2024-02-08] MEDS ORDERED: KLONOPIN2 M1 PO (09:46)
[2024-02-08] MEDS ORDERED: GABAPENTIN100 M2 PO (09:46)
[2024-02-08] MEDS ORDERED: DULOXETINE HCL30 MG PO (09:46)
[2024-02-08] MEDS ORDERED: HYDROCODONE-AC1 EAC1 PO ×2 (11:20→11:21)
[2024-02-08] MEDS ORDERED: NITROFURANTOIN100 M8 PO (11:20)
== END 2024-02-08 12:23 | DRG 885 ==
LOC: 3N 16:28
PROVIDERS: ADMIT Psychiatry & Neurology Psychiatry; ATTEND Psychiatry & Neurology Psychiatry
PROC: GZHZZZZ Group Psychotherapy (ICD-10-PCS; principal; 2024-02-02)
PROC: GZ51ZZZ Individual Psychotherapy, Behavioral (ICD-10-PCS; 2024-02-02)
DX: F33.2 Major depressive disorder, recurrent severe without psychotic features (principal); E44.1 Mild protein-calorie malnutrition; K57.32 Diverticulitis of large intestine without perforation or abscess without bleeding; Z68.43 Body mass index [BMI] 50.0-59.9, adult; R45.851 Suicidal ideations; K58.9 Irritable bowel syndrome, unspecified; D75.839 Thrombocytosis, unspecified; F41.0 Panic disorder [episodic paroxysmal anxiety]; D72.828 Other elevated white blood cell count; R82.71 Bacteriuria; R74.8 Abnormal levels of other serum enzymes; F51.04 Psychophysiologic insomnia; K21.9 Gastro-esophageal reflux disease without esophagitis; E03.9 Hypothyroidism, unspecified; I10 Essential (primary) hypertension; E78.2 Mixed hyperlipidemia; G47.00 Insomnia, unspecified; E53.8 Deficiency of other specified B group vitamins; G89.29 Other chronic pain; F41.1 Generalized anxiety disorder; Z90.710 Acquired absence of both cervix and uterus; Z87.891 Personal history of nicotine dependence; Z83.3 Family history of diabetes mellitus; Z82.49 Family history of ischemic heart disease and other diseases of the circulatory system; Z88.8 Allergy status to other drugs, medicaments and biological substances; Z79.899 Other long term (current) drug therapy; Z83.438 Family history of other disorder of lipoprotein metabolism and other lipidemia